=== PATIENT | male | born 1995 | race Caucasian/White ===

== ENCOUNTER 2018-05-19 12:09 | Outpatient (CLI) | payer BC ==
--- NOTE | 2018-05-19 14:20 | RAD ---
RIGHT HAND 3 VIEWS: Date: 05/19/18 HISTORY: Fall, right hand pain. FINDINGS/IMPRESSION: There is a minimally angulated fracture involving the neck of the fifth metacarpal. POS: [facility]
== END 2018-05-19 12:10 | disposition home or self-care (01) ==
LOC: SCSRAD 12:09
PROVIDERS: ATTEND Family Medicine
DX: S69.91XA Unspecified injury of right wrist, hand and finger(s), initial encounter (principal); S62.336A Displaced fracture of neck of fifth metacarpal bone, right hand, initial encounter for closed fracture

== ENCOUNTER 2018-06-08 11:52 | Outpatient (CLI) | payer BC ==
--- NOTE | 2018-06-08 14:08 | RAD ---
RIGHT HAND 3 VIEWS: Date: 06/08/18 HISTORY: Patient fell and injured hand. COMPARISON: 05/19/18. FINDINGS: The fifth metacarpal fracture involving the metacarpal head and neck region is again noted with some mild volar angulation. There does not appear to be a significant degree of difference in the appearan ce of the fracture as compared to the prior examination. IMPRESSION: Unchanged appearance of the fifth metacarpal fracture. I do not see any definite bony bridging callus formation at this time. POS: [facility]
== END 2018-06-08 11:53 | disposition home or self-care (01) ==
LOC: SCSRAD 11:52
PROVIDERS: ATTEND Family Medicine
DX: S62.306D Unspecified fracture of fifth metacarpal bone, right hand, subsequent encounter for fracture with routine healing (principal)

== ENCOUNTER 2018-06-30 16:42 | Outpatient (CLI) | payer BC ==
--- NOTE | 2018-06-30 16:59 | RAD ---
FRadiograph right hand 3 views: 06/30/2018 HISTORY: 22-year-old male with closed fracture of fifth metacarpal COMPARISON: 06/08/2018 FINDINGS: Fracture at head and neck of fifth metacarpal, with mild radial and volar angulation of distal fragme nt. Minimal callus formation noted. No significant change in alignment. IMPRESSION: Subacute, traumatic, mildly displaced, angulated fracture at distal metaphysis of fifth metacarpal. M inimal callus. No change in alignment.
== END 2018-06-30 16:43 | disposition home or self-care (01) ==
LOC: SCSRAD 16:42
PROVIDERS: ATTEND Family Medicine
DX: S62.366D Nondisplaced fracture of neck of fifth metacarpal bone, right hand, subsequent encounter for fracture with routine healing (principal); L84 Corns and callosities